=== PATIENT | male | born 1925 | race Caucasian/White ===

== ENCOUNTER 2016-05-21 14:55 | Inpatient (IN) | payer OTHER, MEDICARE ==
[~2016-05-21] VITALS: Ht 170.2 cm; Wt 78.4 kg
[~2016-05-21 14:55] MED LIST: ADVIL,NUPRIN,M200 MG PO; AMPICILLIN TRI250 MG PO; AMPICILLIN TRI500 MG PO; ANTI-DIARR262 MG/15 PO; ASPIR-LOW81 MG PO; ATORVASTATIN CA40 MG PO; AUGMENTIN875 MG PO; Aspirin E.C. PO; BENTYL10 MG PO; BLOCADREN10 MG PO; CARDIZEM CD,CA120 MG PO; CARDIZEM CD120 MG PO; CEPHALEXIN250 MG PO; CIPRO500 MG PO; CLOPIDOGREL75 MG PO; COLBENEMID1 TABLET PO; DOCUSATE SODIU100 MG PO; ELIQUIS2.5 MG PO; FUROSEMIDE40 MG PO; GAS RELIEF125 M1 PO; GAS RELIEF125 MG PO; KEFLEX500 MG PO; LASIX40 MG PO; LIPITOR40 MG PO; LISINOPRIL2.5 MG PO; LO-DOSE ASPIRIN81 M1 PO; LO-DOSE ASPIRIN81 M2 PO; LOPRESSOR25 MG PO; MAALOX ADVANCE355 ML PO; MAALOX MAXIMUM355 ML PO; METAMUCIL PACKE1 PKT PO; METOPROLOL TART25 MG PO; MOTRIN600 MG PO; NITROSTAT0.4 MG SL; PANTOPRAZOLE SO40 MG PO; PEPTO BISMOL240 ML PO; PLAVIX75 MG PO; POLYETHYLENE GL17 GM PO; PRILOSEC OTC20 MG PO; PRILOSEC20 MG PO; PROTONIX40 MG PO; TAMSULOSIN HCL0.4 MG PO
[2016-05-21] MEDS ORDERED: PRILOSEC OTC20 MG (15:16)
[2016-05-21] MEDS ORDERED: MELATIN3 MG (15:19)
[2016-05-21] MEDS ORDERED: MOTRIN600 MG PO (15:21)
[2016-05-21] MEDS ORDERED: AMPICILLIN TRI500 MG PO (15:23)
[2016-05-21] MEDS ORDERED: COLBENEMID1 TABLET (15:24)
[2016-05-21 16:44] LABS: HEMATOCRIT 35.8 % (38.0-50.0); MCH 32.3 PG (29.0-34.0); MCHC 33.5 G/DL (30.0-36.0); MCV 96.2 FL (86-99); MEAN PLAT.VOLUME 10.1 uM^3 (9.0-12.4); PLATELET COUNT 233 K/uL (156-360); RBC DIS.WIDTH-CV 14.9 % (11.8-14.6); RBC DIS.WIDTH-SD 49.4 % (39-53); RED BLOOD COUNT 3.72 M/uL (4.00-5.50); WHITE BLOOD COUNT 7.6 K/uL (4.1-10.2)
[2016-05-21 16:57] LABS: CHLORIDE 104 mEq/L (99-109); POTASSIUM 4.6 mEq/L (3.7-5.4); SODIUM 138 mEq/L (136-147)
[2016-05-21 16:59] LABS: GLUCOSE 114 mg/dL (70-99)
[2016-05-21 17:00] LABS: ANION GAP 11 MEQ/L (2-14)
[2016-05-21 17:03] LABS: GFR ESTIMATE (CALCULATED) > 59 mL/min/; UREA NITROGEN (BUN) 20 mg/dL (9-23)
[2016-05-21 17:05] LABS: TROP-I INTERPRETATION NEGATIVE; TROPONIN-I < 0.01 ng/mL (0.0-0.30)
[2016-05-21] MEDS ORDERED: KEFLEX500 MG PO (18:44)
[2016-05-21] MEDS ORDERED: TAMSULOSIN HCL0.4 MG PO (18:48)
[2016-05-21] MEDS ORDERED: PRILOSEC OTC20 MG PO (18:50)
[2016-05-21 19:58] VITALS: BP 149/71
[2016-05-21 20:40] LABS: ADD MIUA? NO; BILIRUBIN NEGATIVE; BLOOD NEGATIVE; COLOR YELLOW ((YELLOW)); GLUCOSE (STRIP) NEGATIVE; KETONES NEGATIVE; LEUKOCYTES NEGATIVE; NITRITE NEGATIVE; PROTEIN (STRIP) NEGATIVE; SPECIFIC GRAVITY 1.013 (1.000-1.030); UCUL ADDED? NO; UROBILINOGEN 0.2 MG/DL (0.2-1.0)
[2016-05-21 23:09] LABS: TROP-I INTERPRETATION NEGATIVE; TROPONIN-I 0.19 ng/mL (0.0-0.30)
[2016-05-21 23:14] VITALS: BP 113/68
[2016-05-22 06:40] LABS: HEMATOCRIT 37.7 % (38.0-50.0); MCH 31.5 PG (29.0-34.0); MCHC 32.4 G/DL (30.0-36.0); MCV 97.4 FL (86-99); MEAN PLAT.VOLUME 10.5 uM^3 (9.0-12.4); PLATELET COUNT 239 K/uL (156-360); RBC DIS.WIDTH-CV 15.3 % (11.8-14.6); RBC DIS.WIDTH-SD 54.1 % (39-53); RED BLOOD COUNT 3.87 M/uL (4.00-5.50)
[2016-05-22 07:02] LABS: ALKALINE PHOSPHATASE 84 IU/L (3-129); ANION GAP 8 MEQ/L (2-14); CHLORIDE 101 MEQ/L (99-109); GFR ESTIMATE (CALCULATED) > 59 mL/min/; GLUCOSE 88 mg/dL (70-99); POTASSIUM 4.4 MEQ/L (3.7-5.4); SAMPLE HEMOLYSIS CHECK 0; SAMPLE ICTERIC CHECK 0; SAMPLE LIPEMIA CHECK 0; SODIUM 140 MEQ/L (136-147); TOTAL BILIRUBIN 0.5 MG/DL (0.0-1.0); UREA NITROGEN (BUN) 22 mg/dL (9-23)
[2016-05-22 07:20] LABS: TROP-I INTERPRETATION POSITIVE
[2016-05-22 07:42] LABS: TROPONIN-I 1.04 ng/mL (0.0-0.30)
[2016-05-22 07:53] VITALS: BP 109/63
[2016-05-22 11:19] VITALS: BP 139/71
[2016-05-22 11:31] LABS: TROP-I INTERPRETATION POSITIVE
[2016-05-22 11:34] LABS: TROPONIN-I 0.67 ng/mL (0.0-0.30)
[2016-05-22 15:21] VITALS: BP 128/67
[2016-05-22 20:00] VITALS: BP 128/60
[2016-05-22 23:56] VITALS: BP 134/60
[2016-05-23 03:36] VITALS: BP 123/63
[2016-05-23 07:57] VITALS: BP 97/58
[2016-05-23 11:16] VITALS: BP 103/57
[2016-05-23 11:20] LABS: ALKALINE PHOSPHATASE 79 IU/L (3-129); ANION GAP 10 MEQ/L (2-14); CHLORIDE 97 MEQ/L (99-109); GFR ESTIMATE (CALCULATED) 51 mL/min/; POTASSIUM 3.7 MEQ/L (3.7-5.4); SAMPLE HEMOLYSIS CHECK 0; SAMPLE ICTERIC CHECK 0; SAMPLE LIPEMIA CHECK 0; SODIUM 138 MEQ/L (136-147); UREA NITROGEN (BUN) 28 mg/dL (9-23)
[2016-05-23 11:21] LABS: GLUCOSE 173 mg/dL (70-99); TOTAL BILIRUBIN 0.3 MG/DL (0.0-1.0)
[2016-05-23 15:28] VITALS: BP 127/68
[2016-05-23 20:07] VITALS: BP 126/59
[2016-05-24 00:03] VITALS: BP 125/61
[2016-05-24 04:07] VITALS: BP 125/63
[2016-05-24 07:07] VITALS: BP 138/63
[2016-05-24 10:39] LABS: ANION GAP 10 MEQ/L (2-14); CHLORIDE 98 MEQ/L (99-109); GFR ESTIMATE (CALCULATED) > 59 mL/min/; GLUCOSE 156 mg/dL (70-99); POTASSIUM 3.5 MEQ/L (3.7-5.4); SAMPLE HEMOLYSIS CHECK 0; SAMPLE ICTERIC CHECK 0; SAMPLE LIPEMIA CHECK 0; SODIUM 140 MEQ/L (136-147); UREA NITROGEN (BUN) 32 mg/dL (9-23)
[2016-05-24 11:23] VITALS: BP 113/55
[2016-05-24 15:24] VITALS: BP 166/72
[2016-05-24 19:25] VITALS: BP 138/75
[2016-05-25 03:56] VITALS: BP 129/71
[2016-05-25 08:37] VITALS: BP 154/74
[2016-05-25 09:02] LABS: ANION GAP 9 MEQ/L (2-14); CHLORIDE 100 MEQ/L (99-109); GFR ESTIMATE (CALCULATED) > 59 mL/min/; POTASSIUM 3.5 MEQ/L (3.7-5.4); SAMPLE HEMOLYSIS CHECK 0; SAMPLE ICTERIC CHECK 0; SAMPLE LIPEMIA CHECK 0; SODIUM 140 MEQ/L (136-147); UREA NITROGEN (BUN) 30 mg/dL (9-23)
[2016-05-25 09:13] LABS: GLUCOSE 103 mg/dL (70-99)
[2016-05-25 11:32] VITALS: BP 165/73
[2016-05-25 13:40] LABS: C DIFF TOXIN NEGATIVE (NEGATIVE)
[2016-05-25 13:43] LABS: PROBE CHECK PASS; SPECIMEN PROCESSING CONTROL PASS
[2016-05-25 16:21] VITALS: BP 154/72
[2016-05-25 23:00] VITALS: BP 142/67
[2016-05-26 07:41] VITALS: BP 153/74
[2016-05-26 09:02] LABS: HEMATOCRIT 39.6 % (38.0-50.0); MCHC 33.6 G/DL (30.0-36.0); MCV 98.3 FL (86-99); MEAN PLAT.VOLUME 10.5 uM^3 (9.0-12.4); PLATELET COUNT 267 K/uL (156-360); RBC DIS.WIDTH-CV 14.9 % (11.8-14.6); RBC DIS.WIDTH-SD 52.8 % (39-53); RED BLOOD COUNT 4.03 M/uL (4.00-5.50)
[2016-05-26 09:18] LABS: WHITE BLOOD COUNT 9.7 K/uL (4.1-10.2)
[2016-05-26 09:19] LABS: ANION GAP 10 MEQ/L (2-14); CHLORIDE 101 MEQ/L (99-109); GFR ESTIMATE (CALCULATED) > 59 mL/min/; GLUCOSE 108 mg/dL (70-99); POTASSIUM 3.6 MEQ/L (3.7-5.4); SAMPLE HEMOLYSIS CHECK 0; SAMPLE ICTERIC CHECK 0; SAMPLE LIPEMIA CHECK 0; SODIUM 141 MEQ/L (136-147); UREA NITROGEN (BUN) 30 mg/dL (9-23)
[2016-05-26] MEDS ORDERED: LOPRESSOR25 MG PO (10:24)
[2016-05-26] MEDS ORDERED: TRAMADOL HCL50 MG PO (10:24)
[2016-05-26] MEDS ORDERED: K-DUR20 MEQ PO (10:24)
[2016-05-26 11:46] VITALS: BP 140/71
== END 2016-05-26 13:22 | disposition home health service (06) | DRG 281 ==
LOC: EME 14:55 → 5SOUTH 18:19 → EDOF 18:19 → 5SOUTH 19:40
PROVIDERS: Emergency Medicine; Hospitalist; Nurse Practitioner Adult Health
DX: I50.33 Acute on chronic diastolic (congestive) heart failure (principal); I21.4 Non-ST elevation (NSTEMI) myocardial infarction; L03.116 Cellulitis of left lower limb; L89.322 Pressure ulcer of left buttock, stage 2; I48.0 Paroxysmal atrial fibrillation; I25.10 Atherosclerotic heart disease of native coronary artery without angina pectoris; I10 Essential (primary) hypertension; D63.8 Anemia in other chronic diseases classified elsewhere; I87.8 Other specified disorders of veins; I35.0 Nonrheumatic aortic (valve) stenosis; N40.0 Benign prostatic hyperplasia without lower urinary tract symptoms; E78.5 Hyperlipidemia, unspecified; K21.9 Gastro-esophageal reflux disease without esophagitis; I25.2 Old myocardial infarction; Z87.891 Personal history of nicotine dependence
CPT/HCPCS: 71010; 71020; 80048; 80053; 81003; 83880; 84484; 85027; 87493; 93005; 97530 GP; 99281; 99285; J0690; J1940